=== PATIENT | male | born 1995 | race Caucasian/White ===

== ENCOUNTER 2018-01-16 18:05 | Emergency (ER) | payer OTHER, SELFPAY ==
[2018-01-16 18:06] VITALS: BP 154/79; PULSE 50; RESP 18; TEMP 36.6; O2SAT 100; BMI 27.3
--- NOTE | 2018-01-16 19:27 | ED.RN ---
NRB MASK APPLIED AT 15L OXYGEN, PER DR. LOJA.
--- NOTE | 2018-01-16 19:49 | ED.RN ---
PT REPORTED AFTER 15 MINUTES OF HIGH VOLUME OXYGEN THAT HEADACHE IS NOT ANY BETTER. INFORMED OF SAME AND NO NEW ORDERS AT THIS TIME.
--- NOTE | 2018-01-16 20:34 | ED.DCSUM_ITS ---
- ER Visit Summary Date of Service: 01/16/18 Chief Complaint: [] Recurrent headaches diagnosed with cluster headaches History of Present Illness: The patient is a 22 M [] history of headaches had prior evaluation as an outpatient including CT MRIs see a neurologist, he indicates he has no history of aneurysm or brain tumor reports inferior experiences intermittent pounding headaches that are paroxysmal nothing makes them better or worse nothing triggers them he is on Fioricet he is a student at [employer] is not seen his neurologist recently he has been otherwise healthy with no fever cough shortness of breath runny nose no trauma, the headaches last for variable period of time he was seen at the [facility] clinic given Tylenol to use and he came to the emergency department today when the headache recurred headache is now almost resolved, we did place him on oxygen when he arrived he states that did not help, he indicates this is his typical usual headache pattern is not different anyway Physical Examination: [] His HEENT exam is unremarkable his vital signs are within normal range his neck is very supple his nose and throat are clear his lungs are clear heart tones are normal abdomen soft neuro exam shows normal cranial nerves motor sensory cerebellar exam Test Results: [] Emergency Department Course and Treatment: [] Time of explained to the patient given all the above we will start him on IV Compazine and Benadryl IV fluids he will continue the Fioricet and follow with his family doctors or neurologist or he was given referral to local neurology follow-up he is graduating soon and will return for change in symptoms Treatment Plan: [] Disposition: [] Home stable Impression: [] Recurrent headache disorder This note was generated with [employer] dictation software. It may contain incorrect words, spelling, and punctuation that were not noted in review of the chart prior to signing ED Disposition - Plan for ED Patient: Chief Complaint: Headache Referrals: [facility] Doctor,Out of [Primary Care Provider] -
--- NOTE | 2018-01-16 20:34 | ED.DEP ---
ED Disposition - Plan for ED Patient: Chief Complaint: Headache Instructions: ED Cephalgia Unspecified Referrals: [facility],Out of [Primary Care Provider] - Chino Khan MD [STAFF PHYSICIAN] -
[2018-01-16] MEDS: proCHLORPERazine 10 MG/2 ML Vial IV (21:12)
[2018-01-16] MEDS: 0.9% Normal Saline 1,000 ML 999 ML IV (21:12)
[2018-01-16] MEDS: DiphenhydrAMINE 50 MG/ML Syringe 25 MG IV (21:12)
[2018-01-16 21:15] VITALS: BP 119/70; PULSE 80; RESP 16; O2SAT 99
[2018-01-16 22:29] VITALS: BP 141/77; PULSE 90; O2SAT 99
== END 2018-01-16 22:30 | disposition home or self-care (01) ==
PROVIDERS: Emergency Provider Emergency Medicine
DX: G44.009 Cluster headache syndrome, unspecified, not intractable (principal)
CPT/HCPCS: 96361; 96374; 96375; 99283; J7030

== ENCOUNTER 2018-01-17 10:46 | Emergency (ER) | payer OTHER, SELFPAY ==
[2018-01-17 10:46] VITALS: BP 127/73; PULSE 72; RESP 16; TEMP 36.6; O2SAT 97; BMI 25.7
--- NOTE | 2018-01-17 11:02 | ED.VISSUMM ---
- ER Visit Summary Date of Service: 01/17/18 Chief Complaint: Left sided headache associated with rhinorrhea and lacrimation. History of Present Illness: The patient is a 22 M history of cluster headaches. He states he has headaches once a year for approximately 1 month. Headaches are intermittent unilateral with nasal congestion and increased tearing. His headache is located on left side. He denies neck pain or stiffness. He denies paresthesia, anesthesia motor weakness upper or lower extremity. He denies problems with walking. He states he was seen here last evening and treated with oxygen. He states he was told there was no medicine that could be given. He is prescribed Fioricet by his family physician for his headaches. He denies any double vision, loss of vision or ocular pain. He denies postnasal drainage, sore throat or neck pain. He denies chest pain, shortness of breath or difficulty breathing. He does complain of mild nausea without vomiting diarrhea. There is no history of trauma. Denies any skin lesions. Physical Examination: He appears uncomfortable. Vital signs are marked for an elevated blood pressure 142/65. Head is atraumatic normocephalic. Pupils are equal round reactive. Extraocular muscles are intact. TMs are pearly white with landmarks noted. Nares patent with no drainage. Posterior pharynx without erythema or exudate. Uvula is midline. There is no dysphonia or dysphasia. Trachea is midline. There is no stridor with auscultation of the neck. Neck is supple. Heart is regular without murmur, gallop or rub. S1 and S2 are normal. Lungs are clear to auscultation with good movement of air bilaterally. Abdomen is soft nontender. There are no skin lesions noted. Patient is alert and oriented ?3. Motor is 5 over 5. Sensory is intact. DTRs are symmetric with no clonus or Babinski sign. Cranial 2 through 12 are intact. Cerebellar testing is normal. Test Results: No tests are indicated Emergency Department Course and Treatment: IV was established and he was treated with 1000 mg Solu-Medrol and 100% oxygen. I was informed at 1135 by Herman Johnston's nurse, that his mother called in and was concerned that medicine was not given immediately to alleviate his headache. I thanked [facility] for informed me of this. Met was told the reason he was not given pain medicine was back that he has cluster headaches which is treated with oxygen and steroids and not opiate analgesia or pain medicine. Patient is doing homework on his laptop. He appears in no distress. Treatment Plan: Outpatient follow-up with PCP or neurologist regarding prophylactic treatment Disposition: Discharged home in stable and improved condition Impression: Acute cluster headache This note was generated with [employer] dictation software. It may contain incorrect words, spelling, and punctuation that were not noted in review of the chart prior to signing ED Disposition - Plan for ED Patient: Disposition: Home or Assisted Living Chief Complaint: Headache Instructions: ED Headache Cluster Referrals: [facility],Out of [Primary Care Provider] - [facility] [GROUP OF PHYSICIANS] - As Needed
--- NOTE | 2018-01-17 11:06 | ED.DCSUM_ITS ---
- ER Visit Summary Date of Service: 01/17/18 Chief Complaint: Left sided headache associated with rhinorrhea and lacrimation. History of Present Illness: The patient is a 22 M history of cluster headaches. He states he has headaches once a year for approximately 1 month. Headaches are intermittent unilateral with nasal congestion and increased tearing. His headache is located on left side. He denies neck pain or stiffness. He denies paresthesia, anesthesia motor weakness upper or lower extremity. He denies problems with walking. He states he was seen here last evening and treated with oxygen. He states he was told there was no medicine that could be given. He is prescribed Fioricet by his family physician for his headaches. He denies any double vision, loss of vision or ocular pain. He denies postnasal drainage, sore throat or neck pain. He denies chest pain, shortness of breath or difficulty breathing. He does complain of mild nausea without vomiting diarrhea. There is no history of trauma. Denies any skin lesions. Physical Examination: He appears uncomfortable. Vital signs are marked for an elevated blood pressure 142/65. Head is atraumatic normocephalic. Pupils are equal round reactive. Extraocular muscles are intact. TMs are pearly white with landmarks noted. Nares patent with no drainage. Posterior pharynx without erythema or exudate. Uvula is midline. There is no dysphonia or dysphasia. Trachea is midline. There is no stridor with auscultation of the neck. Neck is supple. Heart is regular without murmur, gallop or rub. S1 and S2 are normal. Lungs are clear to auscultation with good movement of air bilaterally. Abdomen is soft nontender. There are no skin lesions noted. Patient is alert and oriented ?3. Motor is 5 over 5. Sensory is intact. DTRs are symmetric with no clonus or Babinski sign. Cranial 2 through 12 are intact. Cerebellar testing is normal. Test Results: No tests are indicated Emergency Department Course and Treatment: IV was established and he was treated with 1000 mg Solu-Medrol and 100% oxygen. I was informed at 1135 by Herman Johnston's nurse, that his mother called in and was concerned that medicine was not given immediately to alleviate his headache. I thanked [facility] for informed me of this. Met was told the reason he was not given pain medicine was back that he has cluster headaches which is treated with oxygen and steroids and not opiate analgesia or pain medicine. Patient is doing homework on his laptop. He appears in no distress. Treatment Plan: Outpatient follow-up with PCP or neurologist regarding prophylactic treatment Disposition: Discharged home in stable and improved condition Impression: Acute cluster headache This note was generated with [employer] dictation software. It may contain incorrect words, spelling, and punctuation that were not noted in review of the chart prior to signing ED Disposition - Plan for ED Patient: Disposition: Home or Assisted Living Chief Complaint: Headache Instructions: ED Headache Cluster Referrals: [facility],Out of [Primary Care Provider] - [facility] [GROUP OF PHYSICIANS] - As Needed
--- NOTE | 2018-01-17 11:59 | ED.RN ---
TALKED TO PT'S MOTHER WHO CALLED IN ASKING TO TALK TO THE DOCTOR. I TALKED TO HER IN HIS PLACE, PT REQUESTED THAT SHE KNEW WHAT WAS BEING DONE TO TREAT HER SON. I INFORMED HER THAT THAT WOULD BE A HIPPA VIOLATION WITHOUT THE DIRECT CONSENT OF THE PT TO DISCLOSE ANY MEDICAL INFORMATION AT THIS TIME. SHE COULD DISCLOSE TO ME ANY CONCERNS THAT SHE HAD AT THIS TIME THOUGH AND I WOULD PRESENT THEM TO THE DOCTOR. PT'S MOTHER RELATED THAT SHE WAS WORRIED THAT HE NEEDED PAIN MEDICATION RIGHT AWAY AND A PRESCRIPTION FOR SOMETHING OVER THE WEEKEND SO THE PT WOULD NOT HAVE TO COME BACK TO THE ED. THE CONCERNS OF THE PT'S MOTHER WERE PRESENTED TO DR. BROOKS. AT THAT TIME PT REPORTED THAT HIS PAIN WAS STILL DECREASED FROM THE INITIAL HEADACHE THAT BROUGHT HIM TO THE ED THIS MORNING. PT DID GIVE VERBAL CONSENT TO RELAY HIS MEDICAL INFORMATION TO HIS MOTHER.
--- NOTE | 2018-01-17 12:06 | ED.RN ---
PT RESTING QUIETLY AT THIS TIME REPORTS SLIGHT AMOUNT OF PAIN ABOVE BOTH EYES AT THIS TIME BUT THE PAIN IS REDUCED FROM WHEN HE FIRST CAME TO THE ED.
--- NOTE | 2018-01-17 12:56 | ED.VISSUMM ---
- ER Visit Summary Date of Service: 01/17/18 Chief Complaint: [] History of Present Illness: The patient is a 22 M [] Physical Examination: [] Test Results: [] Emergency Department Course and Treatment: [] Treatment Plan: [] Disposition: [] Impression: [] This note was generated with [employer] dictation software. It may contain incorrect words, spelling, and punctuation that were not noted in review of the chart prior to signing ED Disposition - Plan for ED Patient: Disposition: Home or Assisted Living Chief Complaint: Headache Instructions: ED Headache Cluster Prescriptions: Prednisone 40 mg PO DAILY #10 tab Referrals: [facility] [GROUP OF PHYSICIANS] - As Needed [facility] Doctor,Out of [Primary Care Provider] -
[2018-01-17 13:07] VITALS: BP 138/76; PULSE 83; RESP 17; O2SAT 96
== END 2018-01-17 13:09 | disposition home or self-care (01) ==
PROVIDERS: Emergency Provider Emergency Medicine
DX: G44.009 Cluster headache syndrome, unspecified, not intractable (principal)
CPT/HCPCS: 96365; 99283; A4216; J2930